=== PATIENT | male | born 1965 | race Caucasian/White ===

== ENCOUNTER 2017-01-19 18:19 | Inpatient (IN) | payer OTHER ==
[~2017-01-19] VITALS: Ht 172.7 cm; Wt 103.9 kg
--- NOTE | ~2017-01-19 | EC ---
PATIENT:JEANNETTE MCFARLANE DATE OF SERVICE: 01/19/17 SEX: M MEDICAL RECORD: [id number] DATE OF : 65 LOCATION:[facility] D230 AGE OF PATIENT: 51 ADMISSION DATE: 01/19/17 REFERRING PHYSICIAN: INTERPRETING PHYSICIAN: BETSY FLORENCE MD ECHOCARDIOGRAM REPORT ECHO CHARGES 4 ECHO COMPLETE CLINICAL DIAGNOSIS: SOB ECHOCARDIOGRAPHIC MEASUREMENTS (adult normal given) AC root (d.<3.7cm) 3.7 cm LV Septum d (<1.2 cm> 1.3 cm Valve Excursion 2.1 cm LV Septum (systole) 2.1 cm Left Atria (s.<4.0cm> 3.8 cm LVPW d(<1.2cm) 1.2 cm RV (d.<2.3cm) 3.0 cm LVPW (sytole) 2.1 cm LV diastole(<5.6CM) 5.8 cm MV E-F(>70mm/sec) cm LV systole 3.4 cm LVOT Diameter 2.1 cm MV exc.(>10mm) cm Est.ejection fraction (50-75%) % Pericardial Effusion N DOPPLER: LVIT cm/sec A 69.0 cm/sec E 77.0 cm/sec LA cm/sec RVSP 74.2 mmHg LVOT 106 cm/sec AOP1/2T m/s Asc. Ao 132 cm/sec RVOT 61.0 cm/sec RA cm/sec PA 91.0 cm/sec AV Gradient Peak 7.0 mmHg AV Mean 3.3 mmHg AV Area 2.5 cm MV Gradient Peak 4.0 mmHg MV Mean 2.1 mmHg MV Area cm COMMENTS: Second Hand: Mandeep MALLOYOE Aerial Photograph Interpreter: 3 Dr. Elliott TAPE# PACS DATE OF SERVICE: 01/21/2017 Adequate 2D echo, color flow and spectral Doppler, and M-mode. Borderline LVH. LV internal dimension is normal. Wall motion is normal. EF is equal to 55%. Aortic valve is tricuspid. No evidence of stenosis on Doppler interrogation. Left atrium is normal at 3.8 cm. Mitral valve shows no prolapse. Trace MR. Right-sided chambers appear normal, mild plus to moderate TR. RV systolic pressure is estimated greater than or equal to 74 mmHg via the continuity equation. ECHOCARDIOGRAM REPORT [id number] MCFARLANE,JEANNETTE TRANSINT:[id number] Voice Confirmation ID: [id number] DOCUMENT ID: [id number] BETSY FLORENCE MD CC: [id number] DICTATION DATE: 01/21/17 100 PANTOGRAPHER: 01/21/17 1041 ADM IN [facility] [address] [id number]
--- NOTE | ~2017-01-19 | CN ---
PATIENT NAME:JEANNETTE LOYNS MEDICAL RECORD: [id number] : 65 LOCATION:[facility].2304 ADMIT DATE: 01/19/17 ACCOUNT: [id number] CONSULTING PHYSICIAN: GERMAIN FRANKLIN MD REFERRING PHYSICIAN: ALENA PORTER DO DATE OF CONSULTATION: 01/20/2017 CONSULT REQUESTING PHYSICIAN: Alena Porter DO. REASON FOR CONSULTATION: Bilateral pneumonia, acute hypoxic respiratory failure. HISTORY OF PRESENT ILLNESS: Mr. Lyons is a 51-year-old gentleman. He is not feeling well since September and October. He has a cardiac catheterization and stent placement in October at [facility]. Yesterday, he developed fever, coughing and shortness of breath. The patient came into the ER and admitted for bilateral pneumonia. He is coughing with yellow color sputum production. There is no associated nausea or vomiting. There is no associated diarrhea. REVIEW OF SYSTEMS: Mainly in the history of present illness. PAST MEDICAL HISTORY: 1. Hypertension. 2. Coronary artery disease. 3. Questionable sleep apnea. 4. Diabetes mellitus. 5. Depression. 6. History of pancreatitis. 7. Anxiety. PAST SURGICAL HISTORY: Status post cardiac catheterization and stent placement. ALLERGIES: There are no known drug allergies. PRESENT MEDICATIONS: Vancomycin IV, Levaquin IV, cefepime IV, albuterol/ipratropium nebulizer. All other home medications reviewed. PERSONAL AND SOCIAL HISTORY: The patient is an ex-smoker. He smoked for more than 15 years, more than a pack a day. He is a nondrinker. FAMILY HISTORY: Significant for cardiovascular disease and diabetes. PHYSICAL EXAMINATION: GENERAL: Now, the patient is lying comfortably. He is in mild distress. VITAL SIGNS: The blood pressure is 121/79, pulse is 94, respiration 20-32, temperature is 100.8 and SPO2 is 96% on 5 liters nasal cannula. HEENT: Conjunctivae pink, sclerae nonicteric. NECK: Supple. No JVD. CHEST: Bilateral crackles, wheeze on forceful expiration. HEART: Rhythm regular, normal sound. No murmur. ABDOMEN: Soft, bowel sounds present. No hepatosplenomegaly. RECTAL: Deferred. EXTREMITIES: No cyanosis. No clubbing. No pedal edema. SKIN: Warm, normal turgor. CENTRAL NERVOUS SYSTEM: The patient is awake and alert. There are no obvious CONSULT REPORT [id number] JEANNETTE LYONS cranial nerve abnormalities. The gait was not tested. CHEST RADIOGRAPH: There are bilateral multifocal infiltrates, possibly associated pulmonary edema. LABORATORY DATA: CBC: WBC 10.2, hemoglobin 11.6, hematocrit 35.5, the platelet count is 292. Chemistry: Sodium is 135, potassium 4, BUN is 18, creatinine 1.3. The proBNP is 497. ABG: The pH is 7.44, pCO2 is 35.4, pO2 is 53, this was done on 4 liters. IMPRESSIONS: 1. Acute hypoxic respiratory failure. 2. Bilateral pneumonia, most likely community-acquired pneumonia. I will doubt aspiration. 3. Acute exacerbation of chronic obstructive pulmonary disease. 4. Ex-smoker. 5. Coronary artery disease. 6. Type 2 diabetes mellitus. RECOMMENDATIONS: 1. Continue vancomycin, Levaquin and cefepime to cover for Gram-negative rods and MRSA. 2. Follow up on the CT scan of the chest. 3. Start methylprednisolone IV. 4. Maximize nebulized medication. 5. Follow up series of labs and chest radiograph. Dr. Porter, thank you for involving me in the care of Mr. Lyons. The critical care time is 45 minutes. TRANSINT:[id number] Voice Confirmation ID: [id number] DOCUMENT ID: [id number] GERMAIN FRANKLIN MD CC: ALENA PORTER DO [id number] DICTATION DATE: 01/20/17 1100 LINE UP MACHINE OPERATOR: 01/20/17 1202 ADM IN [facility] [address] [place] [address]
[2017-01-19 19:21] LABS: BASOPHILS 0.1 % (0-2); EOSINOPHILS 2.8 % (0-7); HEMATOCRIT 38.3 % (42.0-54.0); HEMOGLOBIN 12.4 g/dL (13.5-17.5); IMMATURE GRANULOCYTES 0.1 % (0-5); LYMPHOCYTES 12.1 % (15-50); MCH 28.3 pg (26.0-34.0); MCHC 32.4 g/dL (31.0-37.0); MCV 87.4 fL (80.0-100.0); MEAN PLATELET VOLUME 9.1 fL (7.4-10.4); NEUTROPHILS 77.9 % (40-80); PLATELET COUNT 318 10x3/uL (130-400); RBC 4.38 10x6/uL (4.20-6.10); RDW 14.8 % (11.5-14.5); WBC 9.9 10x3/uL (4.8-10.8)
[2017-01-19 19:39] LABS: ALBUMIN 3.2 g/dL (3.4-5.0); ALKALINE PHOSPHATASE 55 U/L (46-116); ALT (SGPT) 30 U/L (10-68); BILIRUBIN - TOTAL 0.31 mg/dL (0.2-1.3); CALC OSMOLALITY 285 mosm/kg (275-300); CALCIUM 9.1 mg/dL (8.5-10.1); CARBON DIOXIDE 26.2 mmol/L (21.0-32.0); CHLORIDE - SERUM 102 mmol/L (98-107); CREATININE - SERUM 1.6 mg/dL (0.6-1.3); POTASSIUM - SERUM 3.7 mmol/L (3.5-5.1); PROTEIN - SERUM 7.9 g/dL (6.4-8.2); SODIUM 139 mmol/L (136-145); UREA NITROGEN 22 mg/dL (7-18); eGFR NON AFRICAN AMERICAN 49 mL/min (90-120)
[2017-01-19 19:41] LABS: GLUCOSE 185 mg/dL (74-106)
[2017-01-19 19:49] LABS: CREATINE KINASE 192 UL (21-232); PRO BNP 497 pg/mL (0-125)
[2017-01-19 19:56] LABS: APPEARANCE CLEAR (CLEAR); BILIRUBIN NEGATIVE (NEGATIVE); COLOR YELLOW (YELLOW); GLUCOSE NEGATIVE (NEGATIVE); KETONE NEGATIVE (NEGATIVE); LEUKOCYTE ESTERASE NEGATIVE (NEGATIVE); NITRITE NEGATIVE (NEGATIVE); PROTEIN NEGATIVE (NEGATIVE); UROBILINOGEN NORMAL (NORMAL)
[2017-01-19 19:57] LABS: UDS - AMPHET NEGATIVE QUAL (NEGATIVE); UDS - BARB NEGATIVE QUAL (NEGATIVE); UDS - BENZO NEGATIVE QUAL (NEGATIVE); UDS - COCAINE NEGATIVE QUAL (NEGATIVE); UDS - METH NEGATIVE QUAL (NEGATIVE); UDS - OPIATE POSITIVE QUAL (NEGATIVE); UDS - PCP NEGATIVE QUAL (NEGATIVE); UDS - THC POSITIVE QUAL (NEGATIVE)
[2017-01-19 19:57] LABS: TROPONIN-I < 0.017 ng/mL (0.000-0.060)
[2017-01-19 19:58] LABS: BACTERIA FEW /hpf (NONE SEEN); WHITE CELLS - URINE OCC /hpf (0-5)
--- NOTE | 2017-01-19 21:38 | NUR ---
ARRIVED TO ROOM 2304 VIA STRETCHER. AMBULATED TO ICU BED. PLACED ON CCM. SINUS TACHYCARDIA IN THE 110'S. O2 @ 4LPM/NC-O2 SATS 93%. ABDOMEN OBESE AND SOFT. RT LUNG LOBE SUE WITH CRACKLES NOTED. RT HAND 22G PIV INTACT WITH NS INFUSING @ 300ML/HR, DECREASED TO 100. LEVAQUIN @ 100ML/HR Y-SITED IN. WILL COMPLETE ADMISSION ASSESSMENT.
[2017-01-19 21:45] VITALS: BP 136/78
[2017-01-19] MEDS ORDERED: GLUCOPHAGE500 MG PO (21:46)
[2017-01-19] MEDS ORDERED: GLUCOTROL 5 MG T5 MG PO (21:47)
[2017-01-19] MEDS ORDERED: TOPROL XL100 MG PO (21:48)
[2017-01-19] MEDS ORDERED: PLAVIX75 MG PO (21:50)
[2017-01-19] MEDS ORDERED: VITAMIN D31000 UNI2 PO (21:50)
[2017-01-19] MEDS ORDERED: BAYER CHEWABLE81 MG PO (21:52)
[2017-01-19] MEDS ORDERED: NEURONTIN 400400 MG PO (21:52)
[2017-01-19] MEDS ORDERED: NEURONTIN800 MG PO (21:53)
[2017-01-19] MEDS ORDERED: ABILIFY20 MG PO (21:54)
[2017-01-19] MEDS ORDERED: TRICOR145 MG PO (21:55)
[2017-01-19] MEDS ORDERED: FLOMAX0.4 MG PO (21:56)
[2017-01-19] MEDS ORDERED: LIPITOR40 MG PO (21:58)
[2017-01-19] MEDS ORDERED: CLONAZEPAM2 MG/TAB PO (22:00)
[2017-01-19 22:01] VITALS: BP 134/88
[2017-01-19 22:15] VITALS: BP 136/78; BMI 34.9
--- NOTE | 2017-01-19 22:15 | NUR ---
ADMISSION ASSESSMENT COMPLETED. SEE ASSESSMENT FLOWSHEET. SISTER AT BEDSIDE. UPDATE GIVEN. EATING SANDWICH TRAY-50% GONE.
[2017-01-19 22:30] VITALS: BP 137/85
--- NOTE | 2017-01-19 22:50 | NUR ---
JORDI DESHPANDE PULLED PER E.RDarius FLANAGAN.
[2017-01-19 23:00] VITALS: BP 114/72
[2017-01-19 23:30] VITALS: BP 131/80
--- NOTE | 2017-01-19 23:30 | NUR ---
02 SAT 88%. EYES CLOSED. MOUTH OPEN. AWOKE TO TAKE DEEP BREATHS. REPORTS HE IS A MOUTH BREATHER. INCREASED O2 TO 5LPM/NC. WILL MONITOR.
[2017-01-20] VITALS (24 sets, daily range): BP systolic 118–154; BP diastolic 66–96; Ht 172.7 cm; Wt 103.9 kg
--- NOTE | 2017-01-20 01:20 | NUR ---
REASSESSMENT COMPLETED. SEE ASSESSMENT. NO NEW ACUTE DISTRESS NOTED. EMPTIED URINAL OF CLEAR, YELLOW URINE.
--- NOTE | 2017-01-20 03:20 | NUR ---
EMPTIED URINE FROM URINAL.
--- NOTE | 2017-01-20 04:20 | NUR ---
REPOSITIONED SELF IN BED. O2 SAT DECREASED TO 88%. INCREASED O2 TEMPORARILY TO 6LPM/NC. REPOSITIONED AGAIN. O2 SATS UP TO 94-95%. DECREASED BACK TO 5LPM/NC. FACE FLUSHED. TEMP REASSESSED. TYLENOL GIVEN.
[2017-01-20 04:29] LABS: BASOPHILS 0.1 % (0-2); EOSINOPHILS 0.7 % (0-7); HEMATOCRIT 35.5 % (42.0-54.0); HEMOGLOBIN 11.6 g/dL (13.5-17.5); IMMATURE GRANULOCYTES 0.2 % (0-5); LYMPHOCYTES 10.4 % (15-50); MCH 28.2 pg (26.0-34.0); MCHC 32.7 g/dL (31.0-37.0); MCV 86.2 fL (80.0-100.0); MONOCYTES 6.8 % (2-11); NEUTROPHILS 81.8 % (40-80); PLATELET COUNT 292 10x3/uL (130-400); RBC 4.12 10x6/uL (4.20-6.10); RDW 14.8 % (11.5-14.5); WBC 10.2 10x3/uL (4.8-10.8)
[2017-01-20 04:51] LABS: ALBUMIN 2.8 g/dL (3.4-5.0); ANION GAP 13.8 mmol/L (8-16); BILIRUBIN - TOTAL 0.54 mg/dL (0.2-1.3); CALCIUM 8.1 mg/dL (8.5-10.1); CARBON DIOXIDE 23.2 mmol/L (21.0-32.0); CREATININE - SERUM 1.3 mg/dL (0.6-1.3); PROTEIN - SERUM 7.3 g/dL (6.4-8.2)
--- NOTE | 2017-01-20 06:15 | NUR ---
EYES CLOSED. NO ACUTE DISTRESS NOTED. URINAL EMPTIED. WILL MONITOR.
--- NOTE | 2017-01-20 07:00 | NUR ---
REC'D CARE OF PT. A&O X3.
--- NOTE | 2017-01-20 07:00 | NUR ---
REPORT GIVEN TO LUIS ALBERTO NOLAND.
--- NOTE | 2017-01-20 08:11 | NUR ---
INITIAL ASSESSMENT COMPLETED PER FLOW SHEET.NO S/S OF SOB BUT DOES C/O SOME SOB. LUNGS CTA. BS +X4. PPP. ESTRELLA. FOLLOWS COMMANDS. A&O X3. CLWR. CPOC.
--- NOTE | 2017-01-20 08:45 | NUR ---
REPOSITIONS SELF IN BED.
--- NOTE | 2017-01-20 10:35 | NUR ---
BACK FROM CT FOR CT OF CHEST WITHOUT CONTRAST.
--- NOTE | 2017-01-20 10:36 | NUR ---
C/O PAIN AT BACK 09/06. MOTRIN GAVE PER ORDERS.
--- NOTE | 2017-01-20 10:45 | NUR ---
REPOSITIONS SELF IN BED.
--- NOTE | 2017-01-20 10:48 | NUR ---
DR. FRANKLIN AT BEDSIDE.
--- NOTE | 2017-01-20 12:13 | NUR ---
FAMILY AT BEDSIDE. UPDATED BY DR. FRANKLIN.
--- NOTE | 2017-01-20 12:33 | NUR ---
REPOSITIONS SELF IN BED.
--- NOTE | 2017-01-20 13:44 | NUR ---
RESTING WITH EYES CLOSED. VSS. REMAINS TACHYPNIC, RR 33. RESPONDS TO VERBAL STIMULI. DENIES NEEDS.
--- NOTE | 2017-01-20 15:06 | NUR ---
FAMILY AT BEDSIDE. UPDATED.
--- NOTE | 2017-01-20 16:26 | NUR ---
DINNER TRAY SERVED.
--- NOTE | 2017-01-20 18:15 | NUR ---
FAMILY AT BEDSIDE. UPDATED.
--- NOTE | 2017-01-20 19:20 | NUR ---
SHIFT ASSESSMENT COMPLETED. SEE ASSESSMENT FLOWSHEET FOR DETAILS. REPORTS BREATHING BETTER THAN YESTERDAY. ON 5.5LPM/NC O2. O2 SATS 93-94%. CRACKLES TO MID RIGHT LING LOBE SUE AND DIMINISHED IN THE BASES. WILL CONTINUE TO MONITOR.
--- NOTE | 2017-01-20 20:30 | NUR ---
ASSISTED UP TO BSC TO HAVE BM. TAKEN OFF MONITORING DEVICES. ONCE BACK IN BED, O2 SATS DOWN TO 75% ON 6LPM/NC. OXIMIZER NOT AVAILABLE BUT R.Vy MALIN IN ROUTE TO GET ONE. WHILE AWAITING PLACED ONTO NON-REBREATHER MASK AND O2 SATS CAME UP TO 97-98%. VERY DUSKY IN COLOR PRIOR TO MASK BEING PLACED ON. ENCOURAGED TO NOT GET UP FOR NOW WITHOUT MASK, VERBALIZED UNDERSTANDING. ONCE STABLE, PLACED ON 15L/MIN OXIMIZER PER KIMO WITH R.T. NO LONGER STRUGGLING TO BREATHE. WILL MONITOR.
--- NOTE | 2017-01-20 20:57 | NUR ---
2100 MEDS GIVEN FSBS ASSESSED. [id number]. SSI INSULIN GIVEN PER ORDERS. WILL MONITOR.
--- NOTE | 2017-01-20 21:15 | NUR ---
FAMILY/FRIENDS IN AT BEDSIDE FOR 2100 VISITATION.
--- NOTE | 2017-01-20 22:47 | NUR ---
IV ROLAND DESHPANDE PER NURSING.
[2017-01-21] VITALS (24 sets, daily range): BP systolic 101–163; BP diastolic 66–96
--- NOTE | 2017-01-21 00:10 | NUR ---
REASSESSMENT COMPLETED. SEE ASSESSMENT FLOWSHEET. DECREASED O2 TO 10L/MIN VIA OXIMIZER. WILL MONITOR.
--- NOTE | 2017-01-21 02:10 | NUR ---
DECREASED O2 TO 7L/MIN OXIMIZER.
--- NOTE | 2017-01-21 03:00 | NUR ---
PORTABLE CHEST XRAY COMPLETED. TOLERATED WELL. REASSESSMENT COMPLETED. SEE ASSESSMENT FLOWSHEET. AFEBRILE.
[2017-01-21 03:57] LABS: ALBUMIN 2.7 g/dL (3.4-5.0); ANION GAP 13.9 mmol/L (8-16); BILIRUBIN - TOTAL 0.65 mg/dL (0.2-1.3); CALCIUM 8.3 mg/dL (8.5-10.1); CARBON DIOXIDE 23.6 mmol/L (21.0-32.0); CREATININE - SERUM 1.3 mg/dL (0.6-1.3); MAGNESIUM - SERUM 1.7 mg/dL (1.8-2.4); PHOSPHOROUS 2.1 mg/dL (2.5-4.9); POTASSIUM - SERUM 3.5 mmol/L (3.5-5.1); PROTEIN - SERUM 7.6 g/dL (6.4-8.2)
[2017-01-21 03:59] LABS: BASOPHILS 0 % (0-2); EOSINOPHILS 0 % (0-7); HEMATOCRIT 35.1 % (42.0-54.0); HEMOGLOBIN 11.4 g/dL (13.5-17.5); IMMATURE GRANULOCYTES 0.2 % (0-5); LYMPHOCYTES 3.2 % (15-50); MCHC 32.5 g/dL (31.0-37.0); MCV 86.2 fL (80.0-100.0); MEAN PLATELET VOLUME 9.7 fL (7.4-10.4); MONOCYTES 2.4 % (2-11); NEUTROPHILS 94.2 % (40-80); PLATELET COUNT 308 10x3/uL (130-400); RBC 4.07 10x6/uL (4.20-6.10); WBC 12.7 10x3/uL (4.8-10.8)
--- NOTE | 2017-01-21 05:00 | NUR ---
EYES CLOSED. NO ACUTE DISTRESS NOTED. WILL MONITOR.
--- NOTE | 2017-01-21 05:42 | NUR ---
ELECTROLYTES REPLACED PER ELECTROLYTE PROTOCOL. O2 @ 9L/MIN OXIMIZER, O2 SAT 92%. REPORTS IT IS NOT GOOD TASTING. WILL MONITOR.
--- NOTE | 2017-01-21 09:18 | NUR ---
AWAKE AND ALERT SKIN WARM AND DRY. NS INFUSING AT 75 ML HOUR PER RIGHT HAND. NO REDNESS OR SWELLING AT SITE. VOIDING IN URINAL CLEAR YELLOW URINE. HYPOACTIVE BOWEL SOUNDS NOTED. BREAKFAST SERVED. PO MEDS TAKEN WITHOUT DIFFICULTY.
--- NOTE | 2017-01-21 10:14 | NUR ---
ASSIST PATIENT WITH BATH AND LINEN CHANGE. PATIENT UP TO BSC WITH LIQUID LIGHT BROWN STOOL. DENIES ANY PAIN. IV RIGHT HAND PATENT. VOIDING CLEAR PALE YELLOW URINE
[2017-01-21 13:28] LABS: ERYTHROCYTE SEDIMENTATION RATE 73 mm/hr (0-20)
--- NOTE | 2017-01-21 19:48 | NUR ---
REPORT RECIEVED. ASSESSMENT COMPLETE PER FLOW SHEET. PT SAT 86% O2 VIA OXYMIZER 9L INCREASED TO 12L O2 SAT NOW 92% WILL CLOSELY MONITOR. RUL RML RUBIA CLEAR BILAT LOWER LOBES CRACKLES HEARD. DENIES PAIN OR NEEDS. WILL CONTINUE TO MONITOR
--- NOTE | 2017-01-21 21:00 | NUR ---
FAMILY AT BEDSIDE. GIVEN UPDATE. NO NEW CHANGES.
--- NOTE | 2017-01-21 22:15 | NUR ---
PT RR 45 O2 SAT 89% ON 12L OXYMIZER ABG OBTAINED AND REVIEWED PT PLACED ON BIPAP PER ORDER WILL REASSESS AT 2330 WILL CONTINUE TO MONITOR
--- NOTE | 2017-01-21 23:00 | NUR ---
REASSESSMENT COMPLETE PER FLOW SHEET. VSS. WILL CONTINUE TO MONITOR RESTING COMFORTABLY. WILL CONTINUE TO MONITOR
[2017-01-22] VITALS (23 sets, daily range): BP systolic 100–152; BP diastolic 62–93
--- NOTE | 2017-01-22 01:12 | NUR ---
REMOVED BIPAP PER PT REQUEST. DENIES FURTHER NEEDS. WILL CONTINUE TO MONITOR
--- NOTE | 2017-01-22 03:00 | NUR ---
REASSESSMENT COMPLET EPER FLOW SHEET. VSS. NO NEW CHANGES WILL CONTINUE TO MONITOR
[2017-01-22 04:05] LABS: BASOPHILS 0 % (0-2); EOSINOPHILS 0 % (0-7); HEMATOCRIT 32.8 % (42.0-54.0); HEMOGLOBIN 10.6 g/dL (13.5-17.5); IMMATURE GRANULOCYTES 0.2 % (0-5); MCH 27.7 pg (26.0-34.0); MCHC 32.3 g/dL (31.0-37.0); MCV 85.9 fL (80.0-100.0); MEAN PLATELET VOLUME 9.4 fL (7.4-10.4); MONOCYTES 3.2 % (2-11); NEUTROPHILS 93.6 % (40-80); PLATELET COUNT 308 10x3/uL (130-400); RBC 3.82 10x6/uL (4.20-6.10); RDW 15.3 % (11.5-14.5); WBC 16.7 10x3/uL (4.8-10.8)
[2017-01-22 04:23] LABS: ANION GAP 12.8 mmol/L (8-16); CALCIUM 8.1 mg/dL (8.5-10.1); CARBON DIOXIDE 24.1 mmol/L (21.0-32.0); CREATININE - SERUM 1.2 mg/dL (0.6-1.3); MAGNESIUM - SERUM 1.8 mg/dL (1.8-2.4); PHOSPHOROUS 2.6 mg/dL (2.5-4.9); POTASSIUM - SERUM 3.9 mmol/L (3.5-5.1)
--- NOTE | 2017-01-22 07:30 | NUR ---
SHIFT ASSESSMENT VIA FLOWSHEET, SEE FOR DETAILS. RECEIVED PT ON 12 L OXYMIZER, BIPAP AT BEDSIDE IF NEEDED. CALL LIGHT WITHIN REACH.
--- NOTE | 2017-01-22 09:02 | NUR ---
AT BEDSIDE, UPDATE PROVIDED. PT VOICES NO ADDITIONAL NEEDS AT THIS TIME. CALL LIGHT WITHIN REACH.
--- NOTE | 2017-01-22 10:29 | NUR ---
NUTRITION F/U CHART REVIEWED. ADA NO ADDED SALT DIET. 50% INTAKE RECENT MEALS. WILL CONTINUE TO PROVIDE CURRENT DIET, MONITOR PO INTAKE. RD FOLLOWING
--- NOTE | 2017-01-22 11:15 | NUR ---
REASSESSMENT VIA FLOWSHEET, SEE FOR DETAILS.
--- NOTE | 2017-01-22 12:30 | NUR ---
GIL SANCHEZ HERE FOR PICC LINE PLACEMENT.
--- NOTE | 2017-01-22 13:10 | NUR ---
LEFT UPPER ARM PICC LINE PLACEMENT COMPLETE, WILL CONFIRM VIA XRAY PRIOR TO USE.
--- NOTE | 2017-01-22 15:15 | NUR ---
REASSESSMENT VIA FLOWSHEET, SEE FOR DETAILS.
--- NOTE | 2017-01-22 18:00 | NUR ---
FAMILY AT BEDSIDE, UPDATE PROVIDED. VSS. PT VOICES NO ADDITIONAL NEEDS AT THIS TIME CALL LIGHT WITHIN REACH.
[2017-01-23] VITALS (19 sets, daily range): BP systolic 126–150; BP diastolic 77–110
--- NOTE | 2017-01-23 03:40 | NUR ---
AFTER BEING MOVED FOR AN XRAY THE PATIENT IS VERY SOB. HR IS IN THE 150'S, RESPIRATIONS ARE 50 PLUS AND O2 SAT IS DECREASED TO LOW 80'S. PT STARTED ON BIPAP. RESPIRATIONS REMAIN IN 50'S. ATIVAN GIVEN PER REQUEST FOR ANXIETY.
[2017-01-23 04:13] LABS: BASOPHILS 0 % (0-2); EOSINOPHILS 0 % (0-7); HEMATOCRIT 30.5 % (42.0-54.0); HEMOGLOBIN 9.9 g/dL (13.5-17.5); IMMATURE GRANULOCYTES 0.4 % (0-5); LYMPHOCYTES 2.8 % (15-50); MCHC 32.5 g/dL (31.0-37.0); MCV 86.4 fL (80.0-100.0); MEAN PLATELET VOLUME 9.2 fL (7.4-10.4); MONOCYTES 4.2 % (2-11); NEUTROPHILS 92.6 % (40-80); PLATELET COUNT 331 10x3/uL (130-400); RBC 3.53 10x6/uL (4.20-6.10); RDW 15.2 % (11.5-14.5); WBC 14.3 10x3/uL (4.8-10.8)
--- NOTE | 2017-01-23 04:15 | NUR ---
PT CONTINUES TO HAVE RAPID RESPIRATIONS. RESTING QUIETLY. DENIES NEEDS.
[2017-01-23 04:21] LABS: ANION GAP 13.9 mmol/L (8-16); CALCIUM 7.6 mg/dL (8.5-10.1); CREATININE - SERUM 1.3 mg/dL (0.6-1.3); MAGNESIUM - SERUM 1.9 mg/dL (1.8-2.4); PHOSPHOROUS 2.8 mg/dL (2.5-4.9); POTASSIUM - SERUM 3.9 mmol/L (3.5-5.1)
--- NOTE | 2017-01-23 05:45 | NUR ---
PT BACK ON VAPOTHERM PER REQUEST.
--- NOTE | 2017-01-23 07:30 | NUR ---
REPORT RECEIVED. ASSUMED CARE OF PATIENT. PT WAS SLEEPING AT TIME OF REPORT. RESPIRATORY RATE 50. O2 SATURATION AT 94% ON VAPOTHERM 40L 100%. WAS GIVEN IN REPORT PT HAD EPISODE OF HR 160'S AND RR 60'S AND O2 SATS 80'S AFTER XRAY THIS AM. WAS PLACED ON BIPAP FOR A WHILE. DID NOT TOLERATE AND WAS RETURNED TO VAPOTHERM. SHORTLY AFTER PT AWAKENED FOR BREATHING TREATMENT. RR NOW IN 30'S. SATS 94%. OCCASSIONAL NON-PRODUCTIVE COUGH. WILL CONTINUE TO MONITOR
--- NOTE | 2017-01-23 08:45 | NUR ---
MORNING MEDICATIONS PROVIDED. SPOKE WITH PT ABOUT HOLDING FOOD IN CASE NEED TO INTUBATE. SAYS WE ARE NOT PLACING A TUBE DOWN HIS THROAT. SAYS HIS MOTHER THAT WAY AND HE WILL NOT. LET HIM KNOW LENS CUTTER HAS BEEN CONSULTED. DENIES ANY NEEDS AT THIS TIME. RESPIRATORY RATE JUMPS BETWEEN 30'S AND 50'S
--- NOTE | 2017-01-23 09:27 | NUR ---
FAMILY AT BEDSIDE. MICHAEL WITH CARDIOLOGY IN VISITING WITH PATIENT AND FAMILY. DISCUSSED INTUBATION. "DAUGHTER" ANGRY. WANTS PATIENT TRANSFERED. FEELS WE AREN'T DOING ENOUGH. RESPIRATORY CULTURE HAS BEEN ORDERED, NOT COLLECTED. SPECIMEN CUP PROVIDED. WANT TO SPEAK WITH DR. PORTER AND DR PARKS. ATTEMPTING TO REACH DR PORTER. HE HAD ALREADY MADE ROUNDS THIS MORNING. PT BECOMING DISTRESSED. OXYGEN SATURATIONS DECREASING. PT BEING PLACED BACK ON BIPAP.
--- NOTE | 2017-01-23 09:54 | NUR ---
PT GIVEN 60MG IV LASIX. EXPLAINED TO PATIENT WHAT IS FOR. ALSO LET HIM KNOW DR CUMMINS WANTS KUMAR CATHETER PLACED. SON NOW AT BEDSIDE. HE IS ALSO SAYING THEY WANT HIM TRANSF[facility]ED TO [facility] [place]. DR PORTER OFFICE REACHED. SPOKE WITH HIM. LET HIM KNOW OF CURRENT CONDITION OF PATIENT AND REQUEST TO TRANSFER. HE SAID PT INITIALLY CAME HERE BECAUSE HE [facility] PORTER SAID IF PT NOW WANTING TO GO TO [facility] TO GET CASE MANAGEMENT INVOLVED AND SEE IF THAT COULD BE POSSIBLE.
--- NOTE | 2017-01-23 10:15 | NUR ---
16F KUMAR CATHETER PLACED PER PROTOCOL. NO RESISTANCE. 300ML CLEAR URINE OUTPUT. PT REMAINS ON BIPAP.
[2017-01-23 10:19] LABS: ANA REFLEX - DIRECT Negative (Negative)
--- NOTE | 2017-01-23 10:38 | NUR ---
DAUGHTER HAS CALLED UNIT. SPOKE WITH WILLIAM. CURRENTLY IN WAITING ROOM. JEFFRY WITH CASE MANAGEMENT INFORMED OF FAMILY REQUESTING TRANSFER.
--- NOTE | 2017-01-23 11:07 | NUR ---
BAM MADE AWARE THAT PATIENT HAS [facility] BENEFITS. CM CALL [facility], SPOKE WITH SIMEON. NOTIFED HER THAT PATIENT WAS ADMITTED 01/19/17 INTO ICU BED AND CM WAS JUST NOTIFIED THAT PATIENT HAD [facility] BENEFITS. SIMEON TOOK BAM'S PHONE NUMBER, DR PORTER'S PHONE NUMBER AND ICU UNIT PHONE NUMBER. STATES SHE WILL CALL BACK WHEN BED IS AVAILABLE FOR TRANSFER. CM WILL CONTINUE TO FOLLOW AND ASSIST PRN WITH DISCHARGE PLANNING / NEEDS.
--- NOTE | 2017-01-23 11:09 | NUR ---
DR CUMMINS BY TO CHECK ON PATIENT. DIURESING WELL. FAMILY HAS BEEN IN MEETING WITH ICU MANGER, RENA AND PULMONOLGIST. THEY WERE LEAVING UNIT DR CUMMINS UPDATED THEM. HE WANTS NS SET TO KVO. CHANGING LOVENOX DOSAGE.
--- NOTE | 2017-01-23 11:22 | NUR ---
CM MET WITH PATIENT'S DAUGHTER MICHELLE PAUL AND REGINALDO MIRANDA PRESENT. EXPLAINED TO DAUGHTER THAT CM HAS CONTACTED [facility] AND NOTIFIED THEM OF PATIENT BEING HERE IN ICU. [facility] IS WORKING ON ICU TRANSFER TO [facility] AND WILL CALL CM BACK WHEN ICU BED IS AVAILABLE. EXPLAINED TO DAUGHTER THAT CM WILL CONTACT PATIENT'S , CHILO [phone], WHEN [facility] HAS BED AVAILABLE AND AT THAT TIME PATIENT'S WILL HAVE OPTION TO ACCEPT [facility] TRANSFER OR TO STAY HERE UNDER PATIENT'S MEDICARE BENEFITS. DAUGHTER VOICED UNDERSTANDING OF INFORMATION AND STATED THAT THE FAMILY MAY DECIDE THEY WANT TO REMAIN HERE AT [facility]. WILL MAKE FINAL DECISION WHEN [facility] CALLS WITH AVAILABLE BED. CM WILL CONTINUE TO ASSIST PRN WITH DISCHARGE PLANNING / NEEDS.
--- NOTE | 2017-01-23 12:12 | NUR ---
FAMILY AT BEDSIDE. ASKING ABOUT TAKING PT OFF BIPAP. EXPLAINED TO THEM I HAD TAKEN HIM OFF FOR A DRINK AND HIS MEDICATION AND HE HAD STARTED TO DESAT AGAIN. FOR THE TIME BEING HE NEEDS TO REMAIN ON BIPAP. ALSO SAID THAT THEY WANT TO HOLD OFF ON [facility], THEY DO WANT TO CONTINUE TO WORK TOWARD TRANSFERING TO [facility].
--- NOTE | 2017-01-23 13:02 | NUR ---
DAUGHTER ALANIS WHO HAS NOT BEEN IN TO SEE PATIENT CALLED TO CHECK UP ON HIM. PASSWORD NOT ON FILE. PT ASKED IF NURSE COULD SPEAK WITH HER. HE GAVE PERMISSION AND PASSWORD SET UP.
--- NOTE | 2017-01-23 13:56 | NUR ---
PT SLEEPING AT THIS TIME. BIPAP ON 100% O2. SATS AT 98%. RR 44.
--- NOTE | 2017-01-23 15:41 | NUR ---
CM spoke with patient regarding transfer wishes. He states he wants to either be transferred to [facility] or [facility], whichever has a bed available first. CM spoke with , Malia. She agrees with patients decision. Consent to transfer form has been received from [facility]. Patient has signed form. BAM has faxed form to Dr. Shaffer for signature - spoke with his nurse Radha, who states she will fax form back to me as soon as Dr. Shaffer signs it. Explained to Radha above POC & that [facility] and [facility] MD will be contacting Dr. Shaffer via telephone for peer to peer review. Transfer request called to [facility] Call Center. Waiting determination from both facilities. Notified patient both requests have been submitted & could take a couple of hours to a couple of days for bed assignment if accepted - verbalized understanding. CM will continue to follow & assist as needed.
--- NOTE | 2017-01-23 15:53 | NUR ---
PT AWAKE, UP IN BED. ON VAPOTHERM AT 40%, RR 32 SAT 93%.
--- NOTE | 2017-01-23 16:04 | NUR ---
ULTRASOUND IN ROOM AT THIS TIME.
--- NOTE | 2017-01-23 16:53 | NUR ---
Rec'd call from Dr. Shaffer stating he has completed peer to peer review with [facility]. Rec'd call from Sienna with [facility] office - patient has been accepted by Dr. Christoph Shannon to their medical ICU for transfer today. Nursing to call report to [phone] - bed assignment will be provided upon calling report. Notified patient of status and notified spouse, Malia, of status via telephone. Malia states she will come on up to the hospital so she can follow the [facility] the [facility]. Answered all questions. Nursing will call report & schedule [facility] for transfer.
--- NOTE | 2017-01-23 18:29 | NUR ---
REPORT HAS BEEN CALLED TO [facility] JB THORPE RN. SHE LATER CALLED BACK AND SAID HER TEAM HAD SOME CONCERNS ABOUT RECEIVING PT AND WOULD LIKE TO SPEAK WITH DR PORTER. THEY ARE UNABLE TO REACH HIM AT THE NUMBER HE PROVIDED. ANSWERING SERVICE CALLED. HE IS NOT MANAGER INVENTORY CONTROL THIS EVENING. THEY WILL PAGE
--- NOTE | 2017-01-23 18:43 | NUR ---
SPOKE WITH DR PORTER ABOUT [facility] STAFF REQUEST. HE ASKED THAT DR PARKS BE PAGED AND HAVE HIM CALL TO DISCUSS PT PRIOR TO CALLING [facility] FACILITY BACK.
--- NOTE | 2017-01-23 18:46 | NUR ---
DR CHARLY ELIZABETH. AWAITING RETURN CALL.
--- NOTE | 2017-01-23 19:01 | NUR ---
DR PARKS ON PHONE WITH DR PORTER
--- NOTE | 2017-01-23 19:08 | NUR ---
DR PORTER CALLED BACK. SPOKE WITH MORGAN AT RECEIVING FACILITY. DISCUSSED THEIR CONCERNS. I CALLED ICU BACK TO VERIFY THEY WILL RECEIVE. DR DANIEL WILL BE THE PHYSICIAN RECEIVING HIM THIS EVENING.
--- NOTE | 2017-01-23 19:20 | NUR ---
CALLED AND SPOKE WITH TOSHIA AT [facility] ICU. LET HER KNOW PATIENT WILL BE COMING BY [facility] AND WILL BE LEAVING OUT SHORTLY. ROOM ASSIGNMENT IS ICU ROOM 18.
--- NOTE | 2017-01-23 19:54 | NUR ---
PT TRANSPORTED OUT [facility]IA [facility]
[2017-01-24 10:19] LABS: ANTI-GLOMERULAR BASMENT MEMBRN 4 units (0-20)
[2017-01-24 16:14] LABS: ANCA - ANTIMYELOPEROXIDASE <9.0 U/mL (0.0-9.0); ANCA - ANTIPROTEINASE 3 <3.5 U/mL (0.0-3.5); ANCA - ATYPICAL <1:20 titer (Neg:<1:20); ANCA - CYTOPLASMIC <1:20 titer (Neg:<1:20); ANCA - PERINUCLEAR <1:20 titer (Neg:<1:20)
[2017-01-24 22:11] LABS: ANGIOTENSIN CONVERTING ENZYME 29 U/L (14-82)
[2017-01-25 22:09] LABS: MYCOPLASMA PNEUMO IGG 960 U/mL (0-99)
== END 2017-01-23 20:14 | disposition short-term general hospital (02) | DRG 871 ==
LOC: D.ER 18:19 → D.ICU 20:20
PROVIDERS: Emergency Medicine; Family Medicine; Internal Medicine Pulmonary Disease; ADMIT Family Medicine
PROC: 5A09457 Assistance with Respiratory Ventilation, 24-96 Consecutive Hours, Continuous Positive Airway Pressure (ICD-10-PCS; principal; 2017-01-21)
PROC: 05HC33Z Insertion of Infusion Device into Left Basilic Vein, Percutaneous Approach (ICD-10-PCS; 2017-01-22)
PROC: B54NZZA Ultrasonography of Left Upper Extremity Veins, Guidance (ICD-10-PCS; 2017-01-22)
DX: A41.9 Sepsis, unspecified organism (principal); J96.01 Acute respiratory failure with hypoxia; I50.31 Acute diastolic (congestive) heart failure; J15.6 Pneumonia due to other Gram-negative bacteria; J13 Pneumonia due to Streptococcus pneumoniae; J69.0 Pneumonitis due to inhalation of food and vomit; J44.1 Chronic obstructive pulmonary disease with (acute) exacerbation; J44.0 Chronic obstructive pulmonary disease with (acute) lower respiratory infection; N17.9 Acute kidney failure, unspecified; I25.10 Atherosclerotic heart disease of native coronary artery without angina pectoris; E11.40 Type 2 diabetes mellitus with diabetic neuropathy, unspecified; I11.0 Hypertensive heart disease with heart failure; N40.0 Benign prostatic hyperplasia without lower urinary tract symptoms; F41.9 Anxiety disorder, unspecified; F32.9 Major depressive disorder, single episode, unspecified; F12.90 Cannabis use, unspecified, uncomplicated; F11.90 Opioid use, unspecified, uncomplicated; K21.9 Gastro-esophageal reflux disease without esophagitis; I27.2 Other secondary pulmonary hypertension; R59.9 Enlarged lymph nodes, unspecified; I07.1 Rheumatic tricuspid insufficiency; Z95.5 Presence of coronary angioplasty implant and graft